=== PATIENT | male | born 1965 | race Native Hawaiian/Other Pacific Islander ===

== ENCOUNTER 2018-10-14 20:01 | Emergency (ER) | payer OTHER ==
[~2018-10-14] VITALS: Ht 185.4 cm; Wt 120.2 kg
[2018-10-14 20:18] VITALS: BP 123/83; TEMP 98.4
== END 2018-10-14 22:30 | disposition home or self-care (01) ==
LOC: ED 20:01
DX: S16.1XXA Strain of muscle, fascia and tendon at neck level, initial encounter (principal); S46.812A Strain of other muscles, fascia and tendons at shoulder and upper arm level, left arm, initial encounter; S70.02XA Contusion of left hip, initial encounter; W11.XXXA Fall on and from ladder, initial encounter; Y92.89 Other specified places as the place of occurrence of the external cause
CPT/HCPCS: 96372; 99283; J1885